=== PATIENT | male | born 1950 | race Caucasian/White ===

== ENCOUNTER → 2017-07-18 | Outpatient (CLI) | payer OTHER, MEDICARE ==
[~2017-07-18] MED LIST: ASPIRIN325; COREG; COREG25 MG PO; CRESTOR20 MG; FARXIGA5 MG PO; GLIPIZIDE XL5 MG PO; GLUCOPHAGE500 MG; JANUMET 50-1,01 EACH PO; KOMBIGLYZE XR1 EAC2; LIPITOR 20 MG T20 M1 PO; LOVAZA1000 MG; NITROSTAT0.4 MG; QUINU10 PD PO; RESTORIL30 MG; RESTORIL30 MG PO; SPIRONOLACTONE25 M1 PO; TRILIPIX135 MG PO; VASCEPA1 GM PO; WELCHOL 625 MG625 M1 PO; ZANTAC 7575 MG PO
== END ==
LOC: RAD 16:05
DX: R05 Cough (principal)

== ENCOUNTER → 2019-06-04 | Outpatient (CLI) | payer OTHER, MEDICARE | LOC: SJCVC 12:52 | DX: I21.09 ST elevation (STEMI) myocardial infarction involving other coronary artery of anterior wall (principal); I44.0 Atrioventricular block, first degree; R94.31 Abnormal electrocardiogram [ECG] [EKG]; I25.10 Atherosclerotic heart disease of native coronary artery without angina pectoris; I13.0 Hypertensive heart and chronic kidney disease with heart failure and stage 1 through stage 4 chronic kidney disease, or unspecified chronic kidney disease; E11.22 Type 2 diabetes mellitus with diabetic chronic kidney disease; N18.3 Chronic kidney disease, stage 3 (moderate); I50.9 Heart failure, unspecified; I42.9 Cardiomyopathy, unspecified; E78.00 Pure hypercholesterolemia, unspecified; E78.1 Pure hyperglyceridemia; Z95.5 Presence of coronary angioplasty implant and graft; Z82.49 Family history of ischemic heart disease and other diseases of the circulatory system; Z87.891 Personal history of nicotine dependence; Z79.82 Long term (current) use of aspirin; Z79.899 Other long term (current) drug therapy; Z79.4 Long term (current) use of insulin ==

== ENCOUNTER → 2019-12-31 | Outpatient (CLI) | payer OTHER, MEDICARE | LOC: SJCVCIMAG 08:23 | PROVIDERS: ATTEND Internal Medicine Cardiovascular Disease | DX: I49.1 Atrial premature depolarization (principal); I42.9 Cardiomyopathy, unspecified; I12.9 Hypertensive chronic kidney disease with stage 1 through stage 4 chronic kidney disease, or unspecified chronic kidney disease; E11.22 Type 2 diabetes mellitus with diabetic chronic kidney disease; N18.3 Chronic kidney disease, stage 3 (moderate); I25.10 Atherosclerotic heart disease of native coronary artery without angina pectoris; R94.39 Abnormal result of other cardiovascular function study; E78.00 Pure hypercholesterolemia, unspecified; E78.1 Pure hyperglyceridemia; Z82.49 Family history of ischemic heart disease and other diseases of the circulatory system; Z87.891 Personal history of nicotine dependence; Z79.82 Long term (current) use of aspirin; Z79.899 Other long term (current) drug therapy; Z98.61 Coronary angioplasty status ==

== ENCOUNTER → 2020-01-16 | Outpatient (CLI) | payer OTHER, MEDICARE ==
[~2020-01-16] VITALS: Ht 175.3 cm; Wt 81.6 kg
[~2020-01-16] MED LIST changes: +ACTOS 30 MG TAB30 M1 PO; +OMEPRAZOLE40 MG PO; +TORSEMIDE5 MG PO
[2020-01-16 07:06] VITALS: BP 152/83
[2020-01-16 07:36] LABS: HEMATOCRIT 37.2 % (42.0-52.0); HEMOGLOBIN 12.5 gm/dL (14.0-18.0); MCH 31.4 pg (26.0-34.0); MCHC 33.7 g/dL (28.0-37.0); RDW 14.3 % (10.5-14.5); WBC 7.3 thou/uL (4.0-11.0)
[2020-01-16 07:38] LABS: CALCIUM 7.9 mg/dL (8.5-10.1); CREATININE 1.4 mg/dL (0.7-1.3); POTASSIUM 3.6 mmol/L (3.5-5.1)
--- NOTE | 2020-01-17 07:56 | EKG ---
[facility] [place] [address] ELECTROCARDIOGRAM REPORT Name: PORTIA PEREZ Room #: [facility].#: [id number] Admission: 01/16/20 Attend Phys: Abbe Velasquez MD, Discharge: Date of : 52 Report #: [id number] THIS REPORT FOR: cc: Mumtaz Mccoy James A. DO Lundgren, Craig H. MD [facility] THIS REPORT FOR: //name// [facility] Test Date: 2020-01-16 Test Time: 07:31:03 Pat Name: PORTIA PEREZ Department: Room: Gender: Senior Field Engineer: EDGARDO : 1950 Requested By: Abbe Velasquez Order Number: [id number] MD: Kevin Braxton Measurements Intervals [place] Rate: 75 P: 44 GA: 210 QRS: -45 QRSD: 113 T: 32 QT: 383 QTc: 428 Interpretive Statements Sinus rhythm Left anterior hemiblock Poor R wave progression Compared to ECG 03/31/2016 07:48:52 No significant change was found Electronically Signed On 01-17-2020 7:56:25 CDT by Kevin Braxton [email or web address] <ELECTRONICALLY SIGNED> By: Kevin Braxton MD, [facility] 01/17/20 0756 0731 Kevin Braxton MD, [facility] /EPI
--- NOTE | 2020-01-18 15:49 | CATHLAB ---
[facility] [place] [address] INVASIVE PROCEDURE REPORT Name: PORTIA PEREZ Russ Room #: [facility].#: [id number] Admission: 01/16/20 Attend Phys: Abbe Velasquez MD, Discharge: Date of : 52 Report #: [id number] THIS REPORT FOR: cc: Mumtaz Mccoy James A. DO Mancuso, Gerald M. MD [facility] ~ APPROVED REPORT Study performed: 01/16/2020 07:44:02 Patient Details The patient is a 69 year-old male Event Personnel Abbe Velasquez Online Tutor, Kristi Owen RN RN, Coleman Pierre RN RN, Bernadette Agrawal RTR, LLOYD Scrub, Alexa Cordero RTR Scrub, Pricila Espitia Monitor Procedures Performed Art Access - R femoral artery* Left Heart Cath w/or w/o Coronaries [id number] [facility] Aortogram Abdominal Peripheral Angio 325205 16814 Initial Mod Sed Same Phys/QHP Gr5y 284717 54070 Mod Sed Same Phys/QHP Ea 215944 Hemostasis w/ Mynx Indication Chest pain Procedure Narrative The Right Groin^ was infiltrated with 1% Lidocaine subcutaneous anesthesia. A PINNACLE 6FR Sheath #[id number] sheath was inserted into the RFA 6F^. Coronary angiography was performed using coronary diagnostic catheters. The right coronary system was accessed and visualized with a JR4 catheter. The left coronary system was accessed and visualized with a JL4 catheter. The left ventricle was accessed and visualized with a STR PIG catheter. There was no hematoma. Intraoperative Conscious Sedation Sedation start time: 855 Case end Time: 927 Fentanyl 200 mcg Versed 4 mg Fluoro Time: 1.70 minutes Dose: DAP 5367.30 cGycm2 645 mGy [facility] [place] [address] INVASIVE PROCEDURE REPORT Name: PORTIA PEREZ [id number]: 01/16/20 Attend Phys: Abbe Velasquez, Discharge: Date of : 52 Report #: [id number] Contrast Type and Amount: Visipaque 120 ml Hemodynamics The aortic pressure is 132/71 mmHg with a mean of 95 mmHg. The left ventricular pressure is 119/9 mmHg with a mean of mmHg. The left ventricular end diastolic pressure is 15 mmHg. Conclusion 1. Left main mild distal tapered narrowing of 20 to 30% giving rise to LAD and circumflex. #2 LAD with 30% irregularity proximal mild distal disease. First diagonal 30 to 40%. 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 Relatively small. Recommendations and plan: Continue aggressive risk factor modification no indication for coronary intervention. Has distal disease as described above we will treat medically. Aortoiliac ultrasound to follow at follow-up. <ELECTRONICALLY SIGNED> By: Abbe Velasquez MD, FACC 01/18/20 1549 1549 1549 Abbe Velasquez MD, FACC /INF
== END | disposition home or self-care (01) ==
LOC: CATH 06:28
PROVIDERS: ATTEND Internal Medicine Cardiovascular Disease
DX: R07.9 Chest pain, unspecified (principal); R94.39 Abnormal result of other cardiovascular function study; I25.10 Atherosclerotic heart disease of native coronary artery without angina pectoris; I71.4 Abdominal aortic aneurysm, without rupture; I72.3 Aneurysm of iliac artery; I12.9 Hypertensive chronic kidney disease with stage 1 through stage 4 chronic kidney disease, or unspecified chronic kidney disease; E11.22 Type 2 diabetes mellitus with diabetic chronic kidney disease; N18.3 Chronic kidney disease, stage 3 (moderate); E78.00 Pure hypercholesterolemia, unspecified; E78.5 Hyperlipidemia, unspecified; Z98.890 Other specified postprocedural states; Z79.899 Other long term (current) drug therapy; Z88.8 Allergy status to other drugs, medicaments and biological substances; Z90.49 Acquired absence of other specified parts of digestive tract

== ENCOUNTER → 2020-07-31 | Outpatient (CLI) | payer OTHER, MEDICARE | LOC: SJCVCIMAG 07:34 | PROVIDERS: ATTEND Internal Medicine Cardiovascular Disease | DX: R94.31 Abnormal electrocardiogram [ECG] [EKG] (principal); I44.7 Left bundle-branch block, unspecified; I77.89 Other specified disorders of arteries and arterioles; I25.10 Atherosclerotic heart disease of native coronary artery without angina pectoris; E78.00 Pure hypercholesterolemia, unspecified; E11.9 Type 2 diabetes mellitus without complications; E78.1 Pure hyperglyceridemia; I72.3 Aneurysm of iliac artery; I42.9 Cardiomyopathy, unspecified; I11.0 Hypertensive heart disease with heart failure; I50.9 Heart failure, unspecified; Z95.5 Presence of coronary angioplasty implant and graft; Z88.8 Allergy status to other drugs, medicaments and biological substances; Z79.4 Long term (current) use of insulin; Z79.82 Long term (current) use of aspirin; Z79.899 Other long term (current) drug therapy; Z87.891 Personal history of nicotine dependence; Z82.49 Family history of ischemic heart disease and other diseases of the circulatory system ==

== ENCOUNTER → 2021-02-24 | Outpatient (CLI) | payer OTHER, MEDICARE | LOC: SJCVCIMAG 08:25 | PROVIDERS: ATTEND Internal Medicine Cardiovascular Disease | DX: I49.3 Ventricular premature depolarization (principal); R00.0 Tachycardia, unspecified; I25.10 Atherosclerotic heart disease of native coronary artery without angina pectoris; E78.00 Pure hypercholesterolemia, unspecified; I42.9 Cardiomyopathy, unspecified; E11.9 Type 2 diabetes mellitus without complications; N18.30 Chronic kidney disease, stage 3 unspecified; I72.3 Aneurysm of iliac artery; Z79.4 Long term (current) use of insulin; Z87.891 Personal history of nicotine dependence; Z79.82 Long term (current) use of aspirin; Z79.899 Other long term (current) drug therapy; Z88.2 Allergy status to sulfonamides; E78.5 Hyperlipidemia, unspecified; Z98.61 Coronary angioplasty status ==